=== PATIENT | female | born 1985 | race Caucasian/White ===

== ENCOUNTER 2018-05-12 13:12 | Inpatient (IN) | payer OTHER ==
[~2018-05-12] VITALS: Ht 157.5 cm; Wt 78.2 kg
[~2018-05-12 13:12] MED LIST: PHENYLephrine (100 MCG/ML) 5ML SYG ONE
[2018-05-12 13:36] VITALS: Ht 157.5 cm; Wt 78.2 kg
[2018-05-12] MEDS ORDERED: PNV11TAB PO (13:38)
[2018-05-12] MEDS ORDERED: CARBOPROST 250 MCG INJ IM PRN ×2 (14:00→17:00)
[2018-05-12] MEDS ORDERED: OXYTOCIN 30 UNITS/LR 500 ML IV PRN ×2 (14:00→17:00)
[2018-05-12] MEDS ORDERED: METHYLERGONOVINE 0.2 MG INJ IM PRN ×2 (14:00→17:00)
[2018-05-12] MEDS ORDERED: MISOPROSTOL 200 MCG TAB PR PRN ×2 (14:00→17:00)
--- NOTE | 2018-05-12 14:02 | TRIAGE ---
OB Triage Datetime Report Generated by CPN: 05/12/2018 14:02 Datetime: 05/12/2018 13:50 Time of Arrival: 05/12/2018 13:50 EGA: 38.6 Arrived By: Ambulatory Arrived From: Home Chief Complaint: UC'S Movement: Present Contractions: Irregular Rupture of Membranes: Denies Vaginal Bleeding: None Vaginal Discharge: Denies Recent Sexual Intercouse: Denies Abdominal Trauma: Not Applicable Patient Complaints: Contractions Time Provider Notified: 05/12/2018 13:30 Provider Notified: SALCEDA Initial Plan: ADMIT FOR C/SEC Datetime: 05/12/2018 13:26 Stage of : Labor
[2018-05-12] MEDS: LACTATED RINGER'S 1,000 ML IV SCH ×2 (14:03→14:48)
--- NOTE | 2018-05-12 14:23 | PREAC ---
Date/Time of Note Date/Time of Note DATE: 05/12/18 TIME: 14:22 Anesthesia Eval and Record Evaluation Time Pre-Procedure Interview DATE: 05/12/18 TIME: 14:22 Age 33 Sex female NPO: 8 hrs Preoperative diagnosis Repeat Planned procedure and BTL Past Medical History Past Medical History: Includes Heme: Anemia : : (4), Para: (2), Gestational age: (39) Surgery & Anesthesia Issues No known issue Meds Anticoagulation: No Beta Lucio within 24 hr: No Reason Beta Lucio not given: Pt. not on B-Lucio Reported Medications [id number] ( 19) 1 Each Tablet, 1 TAB PO DAILY, TAB 05/12/18 Current Medications Lactated Ringer's 1,000 ml @ 125 mls/hr Q8H IV Last administered on 05/12/18at 14:03; Admin Dose 125 MLS/HR; Start 05/12/18 at 13:47 Cefazolin Sodium/ Dextrose 50 ml @ 100 mls/hr ONCE IVPB ; Start 05/12/18 at 14:00 Oxytocin/Lactated Ringer's 500 ml @ 0 mls/hr ONCE PRN IV .VAGINAL BLEEDING; Start 05/12/18 at 14:00 Methylergonovine Maleate (Methergine) 0.2 mg ONCE PRN IM .VAGINAL BLEEDING; Start 05/12/18 at 14:00 Carboprost Tromethamine (Hemabate) 250 mcg ONCE PRN IM .VAGINAL BLEEDING; Start 05/12/18 at 14:00 Misoprostol (Cytotec) 1,000 mcg ONCE PRN [place] .VAGINAL BLEEDING; Start 05/12/18 at 14:00 Meds reviewed: Yes Allergies Coded Allergies: No Known Allergy (Unverified , 05/12/18) Allergies Reviewed: Yes Labs/Studies Labs Reviewed: Reviewed by anesthesiologist Result Diagram: 05/12/18 1402 Laboratory Tests 05/12/18 14:02 test: N/A Studies: ECG (n/a), CXR (n/a) Pre-procedure Exam Airway: Adequate mouth opening, Adequate thyromental dist Mallampati: Mallampati II Teeth: Normal Lung: Normal Heart: Normal ASA Physical Status ASA physical status: 2 Emergency: None Planned Anesthetic Neuraxial: Spinal Planned Pain Management Sub-arachniod narcotics, Parenteral pain med Pre-operative Attestations Prior to commencing anesthesia and surgery, the patient was re-evaluated, there was verification of: *The patient's identity *The results of appropriate recent lab work and preoperative vital signs *The above evaluation not changing prior to induction *Anesthetic plan, risk benefits, alternative and complications discussed with patient/family; questions answered; patient/family understands, accepts and wishes to proceed. VICKI PEDRO MD May 12, 2018 14:23
[2018-05-12] MEDS ORDERED: CITRIC ACID/NA CITRATE 30 ML CUP PO ONE (14:30)
[2018-05-12] MEDS ORDERED: ONDANSETRON 4 MG INJ IV ONE (14:30)
[2018-05-12] MEDS ORDERED: OXYTOCIN 10 UNIT INJ ONE (15:53)
[2018-05-12] MEDS ORDERED: morphine SULFATE/PF (10 MG/10 ML) INJ ONE (15:53)
[2018-05-12] MEDS ORDERED: DEXAMETHASONE 4 MG/ML 1 ML INJ ONE (15:53)
[2018-05-12] MEDS ORDERED: METOCLOPRAMIDE 10 MG INJ ONE (15:53)
[2018-05-12] MEDS ORDERED: KETOROLAC 30 MG INJ ONE (15:53)
--- NOTE | 2018-05-12 16:07 | PREOPHP ---
DATE OF ADMISSION: 05/12/2018 HISTORY OF PRESENT ILLNESS: This is a 33-year-old lady, 4, para 2 with 1 spontaneous abortio n, EDC 05/22/2018, at 38 and 3/7 weeks , admitted to labor and delivery area in labor. She h ad care at the [facility], Dr. Dyson's office, and the care was uneventful. She had two C-sections. She is for repeat and she also signed the consent for tubal liga tion. She wanted to go for repeat plus tubal ligation. The procedure was explained to the patient and she understood everything totally. The risks, benefits, and alternatives were discussed with her as well. OBSTETRICAL HISTORY: She is 4, para. Her first and second deliveries were by . Eladio ahmadi had a spontaneous in 2017 at 7 weeks. GYNECOLOGIC HISTORY: She had menarche at the age of 13, every 28 days interval, 3 to 4 days duration , and moderate in amount. FAMILY HISTORY: Noncontributory. REVIEW OF SYSTEMS: CARDIOVASCULAR: No chest pains. RESPIRATORY: No cough. GASTROINTESTINAL: No diarrhea, no vomiting. GENITOURINARY: No dysuria. PHYSICAL EXAMINATION: GENERAL: Reveals a conscious, coherent lady and in no acute distress. VITAL SIGNS: Her blood pressure 120/80, pulse rate 80 per minute, respirations 16 per minute. BREASTS, HEART AND LUNGS: Within normal limits. ABDOMEN: Soft, fundic height 37 cm, heart tones 140 per minute. PELVIC: Revealed the cervix to be open, 2 to 3 cm dilated, 100% effaced, station 0, in cephalic pres entation with the bag of water intact. EXTREMITIES: No pedal edema. ADMITTING DIAGNOSIS: A 37 and 3/7 weeks intrauterine in labor with two previous s ections and multiparity. The patient desires sterilization. The patient was planned to have a repea t plus tubal ligation. As mentioned, the procedures were explained to the patient and she understood everything totally. The risks, benefits, and alternatives were discussed with her as well . Dictated By: MAURA SMITH/MARQUES Conf#: [id number] DID#: [id number] CC: RIC DYSON MD;*[facility]*
[2018-05-12] MEDS ORDERED: HYDROmorphONE 0.5 MG/0.5 ML SYG IV PRN ×2 (16:30)
[2018-05-12] MEDS ORDERED: morphine 4 MG/ML VIAL IV PRN ×2 (16:30)
[2018-05-12] MEDS ORDERED: ACETAMINOPHEN 500 MG TAB PO PRN (16:30)
[2018-05-12] MEDS ORDERED: NALBUPHINE HCL (10 MG/1 ML) INJ IV PRN (16:30)
[2018-05-12] MEDS ORDERED: ONDANSETRON 4 MG INJ IV PRN (16:30)
[2018-05-12] MEDS ORDERED: NALOXONE (0.4 MG/ML) INJ IV PRN (16:30)
[2018-05-12] MEDS ORDERED: DIPHENHYDRAMINE 50 MG INJ IV PRN (16:30)
[2018-05-12] MEDS ORDERED: KETOROLAC 30 MG INJ IV PRN (16:30)
[2018-05-12] MEDS ORDERED: LACTATED RINGER'S 1,000 ML IV SCH (16:51)
--- NOTE | 2018-05-12 16:51 | OPPN ---
Date/Time of Note Date/Time of Note DATE: 05/12/18 TIME: 16:47 Operative Report Planned Procedure Procedure date May 12, 2018 Procedure(s) REPEAT CSECTION AND BTL Performed by see signature line [employer] Brusher: STARLA BROWNING M.D. 2nd [employer] Brusher none Anesthesiologist: VICKI PEDRO MD Pre-procedure diagnosis 38 WEEKS 4/7 PREVIOUS CSECTION MULTIPARITY [id number] Anesthesia Type: [id number] spinal Post-Procedure Post-procedure diagnosis 38 WEEKS 4/7 PREVIOUS CSECTION MULTIPARITY Findings Live Baby GIRL , Apgars 8and 9, weight 6LBS 7OZ 19 INCHES Estimated Blood Loss: 500 - 600 mls Specimen(s) none Grafts/Implant(s) PLACENTA BOTH TUBES Complication(s) none MAURA HENSON MD May 12, 2018 16:51
--- NOTE | 2018-05-12 16:54 | PAC ---
Date/Time of Note Date/Time of Note DATE: 05/12/18 TIME: 16:53 Post-Anesthesia Notes Post-Anesthesia Note Last documented vital signs T: 97.5 Activity: WNL Respiratory function: WNL Cardiovascular function: WNL Mental status: Baseline Pain reasonably controlled: Yes Hydration appropriate: Yes Nausea/Vomiting absent: Yes VICKI PEDRO MD May 12, 2018 16:54
[2018-05-12] MEDS: OXYTOCIN 30 UNITS/LR 500 ML IV SCH ×2 (16:55→23:45)
[2018-05-12] MEDS ORDERED: HYDROCODONE/APAP (5/325) TAB PO PRN (17:00)
[2018-05-12] MEDS ORDERED: METHYLERGONOVINE 0.2 MG TAB PO PRN (17:00)
[2018-05-12] MEDS ORDERED: IBUPROFEN 800 MG TAB PO PRN (17:00)
[2018-05-12] MEDS ORDERED: LANOLIN HPA 1 PKT TOP PRN (17:00)
[2018-05-12] MEDS: CEFAZOLIN 2 GM/50 ML (PMX) 50 ML IVPB SCH ×2 (17:38→21:15)
[2018-05-12 19:05] VITALS: BP 108/66; PULSE 68; RESP 19
--- NOTE | 2018-05-12 19:05 | NUR ---
Received pt to PP to room 301 via [facility] in stable condition. ID bands checked and verified with Brittany Perez RN. Admission assessment complete. Pt in stable condition. No distress noted. IV and ahn catheter in place. Oriented pt to room and call light. Instructed pt to call nurse for assistance if needed. Plan of care discussed with pt and SO. Both pt and SO verbalized understanding.
[2018-05-12] MEDS: SENNA/DOCUSATE NA (8.6MG/50MG) TAB PO SCH (21:00)
[2018-05-12 23:49] VITALS: BP 101/56; PULSE 74; RESP 18
[2018-05-13] VITALS (7 sets, daily range): BP systolic 91–119; BP diastolic 52–88; PULSE 68–92; RESP 16–19
--- NOTE | 2018-05-13 05:55 | NUR ---
EOSS: Pt in stable condition. IV and ahn catheter remain in place. Pt tolerating PO fluids. Bonding well with baby. Perineal care done. Small lochia noted. SO at bedside for support. No c/o this shift.
[2018-05-13] MEDS: SENNA/DOCUSATE NA (8.6MG/50MG) TAB PO SCH ×2 (09:15→21:00)
--- NOTE | 2018-05-13 16:00 | NUR ---
CRUZ CATHETER REMOVED. TIP INTACT. INSTRUCTED PATIENT TO CALL WHEN NEEDS TO VOID. SAT PATIENT UP IN CHAIR. FOB AT THE BEDSIDE. BABY IN CRIB. PATIENT DENIES PAIN AT THIS TIME. PATIENT TOLERATED WELL.
[2018-05-13] MEDS: HYDROCODONE/APAP (5/325) TAB PO PRN (18:37)
--- NOTE | 2018-05-13 20:54 | PN ---
Date/Time of Note Date/Time of Note DATE: 05/13/18 TIME: 20:53 Assessment/Plan VTE Prophylaxis Risk score (from Ns)>0 risk: 2 SCD applied (from [facility]): No SCD contraindicated: low risk/ambulating Pharmacological prophylaxis: NA/contraindicated Pharm contraindication: low risk/ambulating Lines/Catheters IV Catheter Type (from [facility]): Peripheral IV Assessment/Plan Assessment/Plan POSTCSECTION DAY 1 CHRONIC IRON DEFICIENCY ANEMIA ORDERED ADVANCE DIET TOLERATED CBC ON 3RD POSTOP DAY Result Diagram: 05/13/18 0744 05/13/18 0744 Results 24hrs Laboratory Tests Test 05/13/18 06:35 05/13/18 07:44 Lab Scanned Report REFERENCE LAB White Blood Count 11.8 #H Red Blood Count 3.72 L Hemoglobin 8.8 L Hematocrit 29.5 L Mean Corpuscular Volume 79.3 L Mean Corpuscular Hemoglobin 23.7 L Mean Corpuscular Hemoglobin Concent 29.8 L Red Cell Distribution Width 19.9 H Platelet Count 304 Mean Platelet Volume 9.6 Immature Granulocytes % 0.500 H Neutrophils % 77.9 H Lymphocytes % 14.7 L Monocytes % 6.5 Eosinophils % 0.2 Basophils % 0.2 Nucleated Red Blood Cells % 0.0 Immature Granulocytes # 0.060 H Neutrophils # 9.2 H Lymphocytes # 1.7 Monocytes # 0.8 Eosinophils # 0.0 Basophils # 0.0 Nucleated Red Blood Cells # 0.0 Sodium Level 137 Potassium Level 3.7 Chloride Level 100 Carbon Dioxide Level 24 Anion Gap 13 Blood Urea Nitrogen 7 Creatinine 0.48 Est Glomerular Filtrat Rate mL/min > 60 Glucose Level 74 Calcium Level 8.3 L Subjective 24 Hr Interval Summary Free Text/Dictation POST CSECTION DAY 1 COMPLAIN OF INCISIONAL PAINS GOOD URINE OUTPUT PASSING GAS PER RECTUM NO BOWEL MOVEMENT YET Exam/Review of Systems Exam Vitals Vital Signs Date Temp Pulse Resp B/P (MAP) Pulse Ox O2 O2 Flow FiO2 Time Delivery Rate 05/13/18 99.1 83 18 119/72 Room Air 20:00 (88) 05/13/18 98 16:00 Intake and Output 05/12/18 05/12/18 05/13/18 1414:59 22:59 06:59 IntakeIntake Total 1000 ml 1050 ml 800 ml OutputOutput Total 714 ml 500 ml BalanceBalance 1000 ml 336 ml 300 ml Exam VITAL SIGNS STABLE: YES AFEBRILE: YES BREAST NOT ENGORGED, NON-TENDER, NO APPRECIABLE MASS: YES LUNGS CLEAR, NO RALES, WHEEZES, RHONCHI: YES SINUS RHYTHM WITHOUT MURMUR: YES ABDOMEN: NON-TENDER FUNDUS: BELOW UMBILICUS BOWEL SOUNDS: PRESENT UTERUS: FIRM INCISION (CLEAN, DRY, AND INTACT): YES LOCHIA: LIGHT DEEP TENDON REFLEXES: 0 EXTREMITIES: NO CALF TENDERNESS EDEMA SCALE: NONE Results Results 24hrs Laboratory Tests Test 05/13/18 06:35 05/13/18 07:44 Lab Scanned Report REFERENCE LAB White Blood Count 11.8 #H Red Blood Count 3.72 L Hemoglobin 8.8 L Hematocrit 29.5 L Mean Corpuscular Volume 79.3 L Mean Corpuscular Hemoglobin 23.7 L Mean Corpuscular Hemoglobin Concent 29.8 L Red Cell Distribution Width 19.9 H Platelet Count 304 Mean Platelet Volume 9.6 Immature Granulocytes % 0.500 H Neutrophils % 77.9 H Lymphocytes % 14.7 L Monocytes % 6.5 Eosinophils % 0.2 Basophils % 0.2 Nucleated Red Blood Cells % 0.0 Immature Granulocytes # 0.060 H Neutrophils # 9.2 H Lymphocytes # 1.7 Monocytes # 0.8 Eosinophils # 0.0 Basophils # 0.0 Nucleated Red Blood Cells # 0.0 Sodium Level 137 Potassium Level 3.7 Chloride Level 100 Carbon Dioxide Level 24 Anion Gap 13 Blood Urea Nitrogen 7 Creatinine 0.48 Est Glomerular Filtrat Rate mL/min > 60 Glucose Level 74 Calcium Level 8.3 L Medications Medication Current Medications Cefazolin Sodium/ Dextrose 50 ml @ 100 mls/hr ONCE IVPB Last administered on 05/12/18at 21:15; Admin Dose 100 MLS/HR; Start 05/12/18 at 14:00 Hydromorphone HCl (Dilaudid) 0.2 mg Q2H PRN IV .PAIN 1-5; Start 05/12/18 at 16:30 Hydromorphone HCl (Dilaudid) 0.4 mg Q2H PRN IV .PAIN 6-10; Start 05/12/18 at 16:30 Morphine Sulfate (morphine) 2 mg Q2H PRN IV .PAIN 1-5; Start 05/12/18 at 16:30 Morphine Sulfate (morphine) 4 mg Q2H PRN IV .PAIN 6-10; Start 05/12/18 at 16:30 Ketorolac Tromethamine (Toradol) 30 mg Q6H PRN IV .PAIN 6-10 Last administered on 05/13/18at 13:19; Admin Dose 30 MG; Start 05/12/18 at 16:30; Stop 05/15/18 at 16:29 Acetaminophen (Tylenol Tab) 500 mg Q4H PRN PO .PAIN 1-3; Start 05/12/18 at 16:30 Diphenhydramine HCl (Benadryl) 25 mg Q4H PRN IV .PRURITUS; Start 05/12/18 at 16:30 Nalbuphine HCl (Nubain) 10 mg Q4H PRN IV .PRURITUS; Start 05/12/18 at 16:30 Ondansetron HCl (Zofran Inj) 4 mg Q6H PRN IV .NAUSEA/VOMITING Last administered on 05/12/18at 18:34; Admin Dose 4 MG; Start 05/12/18 at 16:30 Naloxone HCl (Narcan) 0.2 mg Q2M PRN IV .RESP RATE; Start 05/12/18 at 16:30 Miscellaneous Information (* Miscellaneous Pharmacy Order) DURAMORPH: 0.2 MG SPI... GIVEN NEURAXIAL XX ; Start 05/12/18 at 16:30 Methylergonovine Maleate (Methergine) 0.2 mg Q6H PRN PO .VAGINAL BLEEDING; Start 05/12/18 at 17:00 Acetaminophen/ Hydrocodone Bitart ([place] (5/325)) 1 tab Q4H PRN PO .PAIN 4-6; Start 05/12/18 at 17:00 Acetaminophen/ Hydrocodone Bitart ([place] (5/325)) 2 tab Q4H PRN PO .PAIN 7-10 Last administered on 05/13/18at 18:37; Admin Dose 2 TAB; Start 05/12/18 at 17:00 Ibuprofen (Motrin) 800 mg Q8 PRN PO MILD PAIN LEVEL 1-3; Start 05/12/18 at 17:00 Simethicone (Mylicon) 160 mg Q8H PRN PO .GAS Last administered on 05/13/18at 13:18; Admin Dose 160 MG; Start 05/12/18 at 17:00 Senna/Docusate Sodium (Senokot-S) 1 tab BID PO Last administered on 05/13/18at 09:15; Admin Dose 1 TAB; Start 05/12/18 at 21:00 Lanolin (Lanolin Hpa) 1 applic BEDSIDE MEDICATION PRN [place] .NIPPLES Last administered on 05/13/18at 10:54; Admin Dose 1 APPLIC; Start 05/12/18 at 17:00 Diphtheria/ Tetanus/Acell Pertussis (Adacel) 0.5 ml ONCE ONCE IM* ; Start 05/15/18 at 09:00; Stop 05/15/18 at 09:01 Measles/Mumps/ Rubella Vaccine Live (Mmr Ii Vaccine) 0.5 ml ONCE ONCE SC* ; Start 05/15/18 at 09:00; Stop 05/15/18 at 09:01 Oxytocin/Lactated Ringer's 500 ml @ 0 mls/hr ONCE PRN IV .VAGINAL BLEEDING; Start 05/12/18 at 17:00 Methylergonovine Maleate (Methergine) 0.2 mg ONCE PRN IM .VAGINAL BLEEDING; Start 05/12/18 at 17:00 Carboprost Tromethamine (Hemabate) 250 mcg ONCE PRN IM .VAGINAL BLEEDING; Start 05/12/18 at 17:00 Misoprostol (Cytotec) 1,000 mcg ONCE PRN [place] .VAGINAL BLEEDING; Start 05/12/18 at 17:00 MAURA HENSON MD May 13, 2018 20:54
[2018-05-14] MEDS: SENNA/DOCUSATE NA (8.6MG/50MG) TAB PO SCH ×2 (02:38→21:00)
[2018-05-14] MEDS: HYDROCODONE/APAP (5/325) TAB PO PRN ×4 (02:38→21:23)
[2018-05-14 04:00] VITALS: BP 100/61; PULSE 87; RESP 16
--- NOTE | 2018-05-14 06:09 | NUR ---
EOSS: Patient in Stable condition. Bonding well with baby. Feeding neosure per medical indication. Addendum: 05/15/18 at 0555 by CHARLEE BENJAMIN RN Wrong patient. Exclusively breast feeding
[2018-05-14 08:25] VITALS: BP 92/72; PULSE 86; RESP 18
[2018-05-14] MEDS ORDERED: BISACODYL 10 MG SUPP PR PRN (15:30)
[2018-05-14 16:36] VITALS: BP 112/70; PULSE 93; RESP 18
--- NOTE | 2018-05-14 17:16 | NUR ---
EOSS: PT V/S STABLE AND WNL, PO PAIN MEDS FOR PAIN MGMT, BREAST FEEDING ONLY AND BONDING WELL WITH BABY
[2018-05-14 20:30] VITALS: BP 107/66; PULSE 90; RESP 20
[2018-05-15 04:10] VITALS: BP 99/58; PULSE 72; RESP 16
--- NOTE | 2018-05-15 05:55 | NUR ---
EOSS: Patien VSS. Pain controlled. Pumping about 40 ccs every 2-3 hours and feeding via bottle.
[2018-05-15] MEDS: MAGNESIUM HYDROXIDE 30ML CUP PO PRN ×2 (06:44→06:45)
--- NOTE | 2018-05-15 07:53 | OPR ---
DATE OF OPERATION: 05/12/2018 PREOPERATIVE DIAGNOSES: 38 and 4/7 weeks intrauterine in labor, multiparity, the patient d esires sterilization and 2 previous C-sections. POSTOPERATIVE DIAGNOSES: 38 and 4/7 weeks intrauterine in labor, multiparity, the patient desires sterilization and 2 previous C-sections and severe pelvic and abdominal adhesions. BROKERAGE BRANCH MANAGER: Nasir Carlton M.D. ANESTHESIA: Spinal. ANESTHESIOLOGIST: Dr. Goff. OPERATION PERFORMED: Repeat low transverse section plus bilateral tubal ligation and transe ction and lysis of severe pelvic and abdominal adhesions. OPERATIVE TECHNIQUE: Under spinal anesthesia, the patient was prepped and draped in the usual fashio n for abdominal surgery. After checking for the effect of the anesthesia, the previous Pfannenstiel scar was excised. A 12 cm skin incision was performed. The incision was carried from the skin up to the fascia. Upon opening the skin up to the fascia, small blood vessels were noted to be oozing and these were all cauterized. Fascia was opened transversely followed by splitting the muscles vertica lly and the peritoneum vertically. Upon opening the abdominal cavity, the omentum was noted to be at tached all over the anterior parietal peritoneum. All these adhesions were lysed by sharp and blunt dissection. Then, the bladder blade was put in place as the lower uterine segment was noted to be th inned out. An incision was performed about 2 inches above the lower uterine segment. The incision w as carried from the serosa up to the endometrium, and the myra was carried sideways with the aid of m y 2 fingers. My left hand was inserted on the lower segment of the uterus and the bag of water was r uptured. Clear fluid was noted. Baby's head was delivered. Baby's airways were quickly suctioned w ith amniotic fluid. The anterior shoulder, posterior shoulder, and rest of the body of the baby was delivered. The cord was clamped after 30 seconds and baby was handed to the NICU team. The placenta was delivered manually and complete. The uterus was exteriorized. The uterus was cleansed with wet lap sponge to make sure that no membranes were left behind. After correct sponge count, the u terus was closed in the usual fashion using #1 chromic for the first layer, continuous locking suture was used followed by #1 chromic for the second layer, imbricating sutures were used. Bleeders were checked, and there was no bleeding noted. After checking for any bleeders in which there were none, then the right tube was grasped in the center where the avascular area was. A 1 cm tube was stick ti ed at the proximal and distal portions with 2-0 silk stick tie with 2-0 chromic above the first silk tie and another free tie with 2-0 chromic above the second tie. The right tube was cut and the cut e nds was cauterized. The right fimbria was identified. Same thing was done on the left side. The le ft fimbria was identified. Then, after checking for any bleeders in which there were none, then the broad ligaments were checked for any hematoma and there was none noted. The uterus was put back to t pelvic cavity. Once again, uterine incision was checked for any bleeders and there was no bleedin g noted. After correct sponge count, needle count and instrument count as confirmed by the scrub kelly h and talent development consultant, the abdomen was closed in the usual fashion using 0 Vicryl for the peritoneum, 0 Vi cryl for the muscles, for the fascia 0 Vicryl continuous stitch was used followed by few [id number] ght suture for the subcutaneous tissue, it was closed with 3-0 Vicryl and the skin was closed with 3- 0 Vicryl, subcuticular suture was used. The patient tolerated the procedure well. Estimated blood l oss was about 600 mL. Vital signs were stable during and after the procedure. She delivered a healt hy baby girl at 16:13 p.m. weighing 6 pounds 7 ounces, 2930 grams, 19 inches long, 8 and 9. Dictated By: MAURA HENSON MD NS/NTS Conf#: [id number] DID#: [id number] CC: RIC DYSON MD; MAURA HENSON MD;*End*
[2018-05-15 08:00] VITALS: BP 106/73; PULSE 77; RESP 17
[2018-05-15] MEDS: SENNA/DOCUSATE NA (8.6MG/50MG) TAB PO SCH (08:35)
[2018-05-15] MEDS: HYDROCODONE/APAP (5/325) TAB PO PRN ×2 (08:36→14:18)
[2018-05-15] MEDS ORDERED: MEASLES,MUMPS,RUBELLA VACCINE INJ SC* ONE (09:00)
[2018-05-15] MEDS ORDERED: DIPHTH/TET/ACEL PERTUSS (ADULT) 0.5 ML VIAL IM* ONE (09:00)
--- NOTE | 2018-05-15 12:32 | PN ---
Date/Time of Note Date/Time of Note DATE: 05/14/18 TIME: 10:00am Assessment/Plan VTE Prophylaxis Risk score (from Nsg)>0 risk: 3 SCD applied (from Nsg): No SCD contraindicated: low risk/ambulating Pharmacological prophylaxis: NA/contraindicated Pharm contraindication: low risk/ambulating Lines/Catheters IV Catheter Type (from Nrsg): Peripheral IV Assessment/Plan Assessment/Plan POST CSECTION DAY 2 CHRONIC IRON DEFICIENCY ANEMIA HOME TOMORROW CBC TOMORROW COUNSELED INSTRUCTED PRESCRIPTION GIVEN FOR PAIN RETURN TO CLINIC IN 2 WEEKS CALL OFFICE IF THERE IS ANY PROBLEM OR CONCERN CONTINUE WITH VITAMINS OD AND FERROUS SULFATE 325MG PO TID DIET ADVISED Result Diagram: 05/14/18 0722 05/13/18 0744 Subjective 24 Hr Interval Summary Free Text/Dictation POST CSECTION DAY 2 LITTLE BOWEL MOVEMENT GOOD URINE OUTPUT FEELS LESS INCISIONAL PAINS Exam/Review of Systems Exam Vitals Vital Signs Date Temp Pulse Resp B/P (MAP) Pulse Ox O2 O2 Flow FiO2 Time Delivery Rate 05/15/18 99.1 77 17 106/73 Room Air 08:00 (84) 05/13/18 98 16:00 Exam VITAL SIGNS STABLE: YES AFEBRILE: YES BREAST NOT ENGORGED, NON-TENDER, NO APPRECIABLE MASS: YES LUNGS CLEAR, NO RALES, WHEEZES, RHONCHI: YES SINUS RHYTHM WITHOUT MURMUR: YES ABDOMEN: NON-TENDER FUNDUS: BELOW UMBILICUS BOWEL SOUNDS: PRESENT UTERUS: FIRM INCISION (CLEAN, DRY, AND INTACT): YES LOCHIA: LIGHT DEEP TENDON REFLEXES: 0 EXTREMITIES: NO CALF TENDERNESS EDEMA SCALE: NONE Medications Medication Current Medications Cefazolin Sodium/ Dextrose 50 ml @ 100 mls/hr ONCE IVPB Last administered on 05/12/18at 21:15; Admin Dose 100 MLS/HR; Start 05/12/18 at 14:00 Hydromorphone HCl (Dilaudid) 0.2 mg Q2H PRN IV .PAIN 1-5; Start 05/12/18 at 16:30 Hydromorphone HCl (Dilaudid) 0.4 mg Q2H PRN IV .PAIN 6-10; Start 05/12/18 at 16:30 Ketorolac Tromethamine (Toradol) 30 mg Q6H PRN IV .PAIN 6-10 Last administered on 05/13/18 13:19; Admin Dose 30 MG; Start 05/12/18 at 16:30; Stop 05/15/18 at 16:29 Acetaminophen (Tylenol Tab) 500 mg Q4H PRN PO .PAIN 1-3; Start 05/12/18 at 16:30 Diphenhydramine HCl (Benadryl) 25 mg Q4H PRN IV .PRURITUS; Start 05/12/18 at 16:30 Nalbuphine HCl (Nubain) 10 mg Q4H PRN IV .PRURITUS; Start 05/12/18 at 16:30 Ondansetron HCl (Zofran Inj) 4 mg Q6H PRN IV .NAUSEA/VOMITING Last administered on 05/12/18 18:34; Admin Dose 4 MG; Start 05/12/18 at 16:30 Naloxone HCl (Narcan) 0.2 mg Q2M PRN IV .RESP RATE; Start 05/12/18 at 16:30 Miscellaneous Information (* Miscellaneous Pharmacy Order) DURAMORPH: 0.2 MG SPI... GIVEN NEURAXIAL XX ; Start 05/12/18 at 16:30 Methylergonovine Maleate (Methergine) 0.2 mg Q6H PRN PO .VAGINAL BLEEDING; Start 05/12/18 at 17:00 Acetaminophen/ Hydrocodone Bitart ([place] (5/325)) 1 tab Q4H PRN PO .PAIN 4-6 Last administered on 05/14/18 08:32; Admin Dose 1 TAB; Start 05/12/18 at 17:00 Acetaminophen/ Hydrocodone Bitart ([place] (5/325)) 2 tab Q4H PRN PO .PAIN 7-10 Last administered on 05/15/18 08:36; Admin Dose 2 TAB; Start 05/12/18 at 17:00 Ibuprofen (Motrin) 800 mg Q8 PRN PO MILD PAIN LEVEL 1-3 Last administered on 05/14/18 23:08; Admin Dose 800 MG; Start 05/12/18 at 17:00 Simethicone (Mylicon) 160 mg Q8H PRN PO .GAS Last administered on 05/14/18 23:08; Admin Dose 160 MG; Start 05/12/18 at 17:00 Senna/Docusate Sodium (Senokot-S) 1 tab BID PO Last administered on 05/15/18at 08:35; Admin Dose 1 TAB; Start 05/12/18 at 21:00 Lanolin (Lanolin Hpa) 1 applic BEDSIDE MEDICATION PRN [place] .NIPPLES Last administered on 05/13/18at 10:54; Admin Dose 1 APPLIC; Start 05/12/18 at 17:00 Oxytocin/Lactated Ringer's 500 ml @ 0 mls/hr ONCE PRN IV .VAGINAL BLEEDING; Start 05/12/18 at 17:00 Methylergonovine Maleate (Methergine) 0.2 mg ONCE PRN IM .VAGINAL BLEEDING; Start 05/12/18 at 17:00 Carboprost Tromethamine (Hemabate) 250 mcg ONCE PRN IM .VAGINAL BLEEDING; Start 05/12/18 at 17:00 Misoprostol (Cytotec) 1,000 mcg ONCE PRN [place] .VAGINAL BLEEDING; Start 05/12/18 at 17:00 Magnesium Hydroxide (Milk Of Mag) 30 ml BID PRN PO CONSTIPATION Last adminis tered on 05/15/18at 06:45; Admin Dose 30 ML; Start 05/14/18 at 15:30 Bisacodyl (Dulcolax Supp) 10 mg DAILY PRN [place] CONSTIPATION Last administered on 05/14/18at 16:03; Admin Dose 10 MG; Start 05/14/18 at 15:30 MAURA HENSON MD May 15, 2018 12:32
--- NOTE | 2018-05-15 16:10 | NUR ---
PATIENT WENT HOME STABLE WITH THE BABY. D/C INSTRUCTIONS GIVEN, VERBALIZED UNDERSTANDING.
--- NOTE | 2018-05-19 08:42 | DS ---
DATE OF ADMISSION: 05/12/2018 DATE OF DISCHARGE: 05/15/2018 This is a 33-year-old lady, 4, para 2 with 1 spontaneous , EDC 05/22/2018, at 38 and 3/7 weeks, admitted to labor and delivery area in labor. HISTORY OF PRESENT ILLNESS: See dictated history and physical. PHYSICAL EXAMINATION: See dictated history and physical. ADMITTING DIAGNOSIS: A 38 and 3/7 weeks intrauterine in labor with two previous s ection and multiparity. The patient desired sterilization and repeat . The patient underwe nt a repeat , plus bilateral tubal ligation and transection and lysis of severe pelvic and a bdominal adhesions. This was done on 05/12/2018. She tolerated the procedure well. She did have go od postoperative course. The diet was advanced from liquid to general diet. She had good bowel move ment postoperatively. She was discharged home on the third postoperative day on general diet and act ivity was restricted. She was counseled. She was instructed. She was told to come back to the clin ic in 2 weeks. She was given prescription for pain. She was discharged home in good and stable cond ition. She delivered a healthy baby girl at 1613 p.m. weighing 6 pounds 7 ounces, 2930 grams, 19 inc hes long, 8/9 on 05/12/2018. Dictated By: MAURA HENSON MD NS/NTS Conf#: [id number] DID#: [id number] CC: RIC DYSON MD;*EndCC*
== END 2018-05-15 16:10 | disposition home or self-care (01) | DRG 785 ==
LOC: L-D 13:12 → OBT 13:12 → L-D 13:45 → OBT 13:58 → L-D 15:39 → PP1 19:35
PROVIDERS: ADMIT Obstetrics & Gynecology; ATTEND Obstetrics & Gynecology
PROC: 0UB70ZZ Excision of Bilateral Fallopian Tubes, Open Approach (ICD-10-PCS; 2018-05-12)
PROC: 0DNU0ZZ Release Omentum, Open Approach (ICD-10-PCS; 2018-05-12)
PROC: 10D00Z1 Extraction of Products of Conception, Low, Open Approach (ICD-10-PCS; principal; 2018-05-12 15:30)
DX: O34.211 Maternal care for low transverse scar from previous cesarean delivery (principal); O99.89 Other specified diseases and conditions complicating pregnancy, childbirth and the puerperium; N73.6 Female pelvic peritoneal adhesions (postinfective); O99.03 Anemia complicating the puerperium; D50.9 Iron deficiency anemia, unspecified; Z3A.38 38 weeks gestation of pregnancy; Z37.0 Single live birth; Z30.2 Encounter for sterilization
CPT/HCPCS: 80048; 85025; 85610; 85730; 86592; 86850; 86900; 86901; 88302; 99464; G0463; J0690; J1100; J1885; J2274; J2370; J2405; J2590; J2765; J7120